=== PATIENT | female | born 1955 | race Caucasian/White ===

== ENCOUNTER → 2018-10-11 | Outpatient (CLI) | payer BC, MEDICARE ==
--- NOTE | 2018-10-11 14:35 | RAD ---
DATE: 10/11/2018 EXAM: MAMMO RHEA GENIA JONES, BREAST BILATERAL HISTORY: Right axillary swelling COMPARISON: 06/25/2015 This study was interpreted with the benefit of Computerized Aided Detection (CAD). Breast Density: HETERO The breast parenchyma is heterogenously dense, which could reduce sensitivity of mammography. Breast parenchyma level C. FINDINGS: 2-D and 3-D tomosynthesis imaging was performed in CC and MLO projections. A spiculated nodule is now identified at the 12:00 location on the right, as best seen on oblique tomosynthesis image #39 and cc tomosynthesis images #40. Its dense central component measures 11 mm. There are additional thin peripheral spiculations. No other new or enlarging breast densities are seen. There are benign type calcifications in both breasts. No suspicious breast microcalcifications are seen. Small lymph node type densities in both axillae appear unchanged. Right breast ultrasound, 10/11/2018: We first targeted the 12:00 location where a nodule was identified mammographically. Approximately 4 cm from the nipple at the 4:00 location there is a hypoechoic nodule with ill-defined margins. It measures 1.1 cm. There is posterior acoustic shadowing. It appears to be taller than wide. The features are highly suspicious for malignancy. No other abnormality was seen in this region. We also targeted the right axillary region where the patient complained of axillary fullness. No mass or adenopathy was identified sonographically. IMPRESSION: Right breast nodule which is highly suspicious for malignancy. Ultrasound-guided biopsy is suggested for further evaluation. Note: The certified ophthalmic technologist informed the patient of these findings at the time of the study. She will follow up with the ordering provider. BI-RADS CATEGORY: 5 HIGHLY SUGGESTIVE MALIGNANCY RECOMMENDED FOLLOW-UP: BIO BIOPSY RECOMMENDED PQRS compliance statement: Patient information was entered into a reminder system with a target due date for the next mammogram. Mammography is a sensitive method for finding small breast cancers, but it does not detect them all and is not a substitute for careful clinical examination. A negative mammogram does not negate a clinically suspicious finding and should not result in delay in biopsying a clinically suspicious abnormality. "Our facility is accredited by the [employer] Mammography Program."
== END | disposition home or self-care (01) ==
LOC: MAMMO 12:58
PROVIDERS: ATTEND Family Medicine
DX: N63.12 Unspecified lump in the right breast, upper inner quadrant (principal); N64.89 Other specified disorders of breast
CPT/HCPCS: 76641; 77066; G0279; 77062

== ENCOUNTER → 2020-03-21 | Outpatient (CLI) | payer BC ==
[~2020-03-21] MED LIST: ALPR0.25 PO; ANAS1TAB47 PO; CHOL500021 PO; DICL100G18 TP; FLUT15.812 NS; LEVO50TA PO; MELO15TA23 PO; OMEG100021 PO; OMEG1CAP50 PO; PANT40TA6 PO; SERT100T PO; SIMV20TA18 PO
== END ==
LOC: LAB 10:00
PROVIDERS: ATTEND Nurse Anesthetist, Certified Registered
DX: Z01.812 Encounter for preprocedural laboratory examination (principal); Z20.828 Contact with and (suspected) exposure to other viral communicable diseases
CPT/HCPCS: U0003

== ENCOUNTER → 2020-03-25 | Day surgery (SDC) | payer BC ==
[~2020-03-25] MED LIST changes: +ACETAMINOPHEN 325 MG TABLET PO PRN; +ALBUTEROL SULFATE 2.5 MG/3 ML NEBU. NEB PRN; +ATROPINE 0.5 MG/5 ML DISP.SYRIN. IV PRN; +IV RINGERS SOLUTION,LACTATED 1,000 ML IV SCH; +MIDAZOLAM HCL PF 2 MG/2 ML VIAL. IV PRN; +ONDANSETRON PF 4 MG/2 ML VIAL. IV PRN; +PROPOFOL 10,000 MCG/ML (20ML) VIAL IV ONE; +diphenhydrAMINE 50 MG/ML VIAL IV PRN
[2020-03-25 11:09] VITALS: BP 112/75
== END | disposition home or self-care (01) ==
LOC: SURG 09:29
PROVIDERS: ATTEND Internal Medicine Gastroenterology
DX: Z12.11 Encounter for screening for malignant neoplasm of colon (principal); Z72.89 Other problems related to lifestyle; Z79.899 Other long term (current) drug therapy; Z90.710 Acquired absence of both cervix and uterus; F32.9 Major depressive disorder, single episode, unspecified; Z90.10 Acquired absence of unspecified breast and nipple; E07.9 Disorder of thyroid, unspecified; E78.5 Hyperlipidemia, unspecified; Z98.891 History of uterine scar from previous surgery
CPT/HCPCS: 45378; J2704; J7120

== ENCOUNTER 2020-07-03 10:03 | Emergency (ER) | payer BC ==
[~2020-07-03] VITALS: Ht 147.3 cm; Wt 59.0 kg
[~2020-07-03 10:03] MED LIST changes: -ACETAMINOPHEN 325 MG TABLET PO PRN; -ALBUTEROL SULFATE 2.5 MG/3 ML NEBU. NEB PRN; -ATROPINE 0.5 MG/5 ML DISP.SYRIN. IV PRN; -IV RINGERS SOLUTION,LACTATED 1,000 ML IV SCH; -MIDAZOLAM HCL PF 2 MG/2 ML VIAL. IV PRN; -ONDANSETRON PF 4 MG/2 ML VIAL. IV PRN; -PROPOFOL 10,000 MCG/ML (20ML) VIAL IV ONE; -diphenhydrAMINE 50 MG/ML VIAL IV PRN
[2020-07-03] MEDS ORDERED: IV NORMAL SALINE 1,000ML 1,000 ML IV ONE (10:45)
[2020-07-03] MEDS ORDERED: ONDANSETRON PF 4 MG/2 ML VIAL. IVP ONE (10:45)
--- NOTE | 2020-07-03 11:27 | PHYS DOC ---
Past History Past Medical History: Anxiety, Cancer, GERD, High Cholesterol, Hypothyroid Past Surgical History: Cancer Surgery Additional Past Surgical Histo: Right breast CA Alcohol Use: Occasionally General Adult EDM: Chief Complaint: NAUSEA/VOMITING/DIARRHEA HPI: HPI: Patient is a 64-year-old female coming in for nausea and vomiting for 5 days. States she has vomited once to twice in the morning, nonbloody nonbilious. Has not had a bowel movement in approximately 7 days. That she has been drinking mell giuliano and taking Tums but has been vomiting with a solid food. Was around sick family members the morning the symptoms started, multiple people with vomiting. Denies any cough, fevers. Has had decreased urination, but denies any dysuria or hematuria. Denies any abdominal distention, recent travel, antibiotic use, raw or undercooked foods. Review of Systems: Review of Systems: All other systems within normal limits except for as noted in the HPI Current Medications: Current Meds: Current Medications Medications (Trade) Dose Ordered Sig/Tegan Start Time Stop Time Status Last Admin Dose Admin Ondansetron HCl (Zofran) 4 mg 1X ONCE 07/03/20 10:45 07/03/20 10:54 DC Sodium Chloride 1,000 ml @ 1,000 mls/hr 1X ONCE 07/03/20 10:45 07/03/20 11:44 Allergies: Allergies: Allergies Coded Allergies Type Severity Reaction Last Updated Verified No Known Drug Allergies 03/19/20 No Physical Exam: PE: Constitutional: Well developed, well nourished, no acute distress, non-toxic appearance. [] HENT: Normocephalic, atraumatic, bilateral external ears normal, nose normal. [] Eyes: PERRLA, conjunctiva normal, no discharge. [] Neck: No rigidity, supple, no stridor. [] Cardiovascular: Regular rate and rhythm, brisk cap refill [] Lungs & Thorax: Non labored symmetric respirations, no tachypnea or respiratory distress [] Abdomen: Soft, nondistended, no focal tenderness, negative Kline sign, no guarding or rebound.. Skin: Warm, dry, no erythema, no rash. [] Back: Unremarkable Extremities: No deformities, range of motion grossly intact, no lower extremity edema [] Neurologic: Alert and oriented X 3, no focal deficits noted. [] Psychologic: Affect normal, judgement normal, mood normal. [] Constitutional: Well developed, well nourished, no acute distress, non-toxic appearance. [] HENT: Normocephalic, atraumatic, bilateral external ears normal, oropharynx moist, no oral exudates, nose normal. [] Eyes: PERRLA, EOMI, conjunctiva normal, no discharge. [] Neck: Normal range of motion, no tenderness, supple, no stridor. [] Cardiovascular:Heart rate regular rhythm, no murmur [] Lungs & Thorax: Bilateral breath sounds clear to auscultation [] Abdomen: Bowel sounds normal, soft, no tenderness, no masses, no pulsatile masses. [] Skin: Warm, dry, no erythema, no rash. [] Back: No tenderness, no CVA tenderness. [] Extremities: No tenderness, no cyanosis, no clubbing, ROM intact, no edema. [] Neurologic: Alert and oriented X 3, normal motor function, normal sensory function, no focal deficits noted. [] Psychologic: Affect normal, judgement normal, mood normal. [] Current Patient Data: Vital Signs: Vital Signs Date Time Temp Pulse Resp B/P (MAP) Pulse Ox O2 Delivery O2 Flow Rate FiO2 07/03/20 10:03 99.0 102 18 113/86 (95) 98 Room Air EKG: EKG: Sinus rhythm, heart rate 90 bpm, normal axis, no ST elevation or depression, no ectopy. [] Radiology/Procedures: Radiology/Procedures: FINDINGS: There is a nonobstructive nonspecific bowel gas pattern, with a moderate amount stool to the level of the rectum. No pathologic calcifications are identified. No free air beneath diaphragm. No significant osseous abnormalities. IMPRESSION: 1. Nonobstructive nonspecific bowel gas pattern.[] Heart Score: HEART Score for Chest Pain: HEART Score for Chest Pain Response (Comments) Value History Slighlty/Non-Suspicious 0 ECG Normal 0 Age >45 - < 65 1 Risk Factors 1 or 2 Risk Factors 1 Troponin >1-<3x Normal Limit 1 Total 3 Risk Factors: Risk Factors: DM, Current or recent (<one month) smoker, HTN, HLP, family history of CAD, obesity. Risk Scores: Score 0 - 3: 2.5% MACE over next 6 weeks - Discharge Home Score 4 - 6: 20.3% MACE over next 6 weeks - Admit for Clinical Observation Score 7 - 10: 72.7% MACE over next 6 weeks - Early Invasive Strategies Course & Med Decision Making: Course & Med Decision Making Pertinent Labs and Imaging studies reviewed. (See chart for details) Initial mildly elevated troponin was a lab error. Repeated twice was negative. Patient went home with Covid precautions and antibiotics for her tract infection. Tolerating p.o. after Zofran. [] Dragon Disclaimer: Dragon Disclaimer: This electronic medical record was generated, in whole or in part, using a voice recognition dictation system. Departure Departure: Impression: Primary Impression: Nausea & vomiting Additional Impression: Urinary tract infection Disposition: 01 DC HOME SELF CARE/HOMELESS Condition: IMPROVED Referrals: HEAVENLY TELLES MD (PCP) Patient Instructions: Nausea and Vomiting Scripts Cephalexin (CEPHALEXIN) 500 Mg Tablet 1 TAB PO BID for antibiotic for 7 Days, #14 TAB Prov: GERALDINE MANRIQUEZ MD 07/03/20 Ondansetron (ONDANSETRON ODT) 4 Mg Tab.rapdis 1 TAB PO PRN Q6-8HRS PRN for NAUSEA for 3 Days, #10 TAB Prov: GERALDINE MANRIQUEZ MD 07/03/20 GERALDINE MANRIQUEZ MD Jul 03, 2020 11:27
[2020-07-03 11:57] LABS: BASO % 0 % (0-3); EOS % 0 % (0-3); HEMATOCRIT 32.8 % (36.0-47.0); HEMOGLOBIN 10.9 g/dL (12.0-15.5); LYMPH # 0.7 x10^3/uL (1.0-4.8); LYMPH % 6 % (24-48); MEAN CORPUSCULAR HEMOGLOBIN 29 pg (25-35); MEAN CORPUSCULAR HGB CONC 33 g/dL (31-37); MEAN CORPUSCULAR VOLUME 88 fL (79-100); MONO # 1.5 x10^3/uL (0.0-1.1); MONO % 12 % (0-9); NEUT # 10.6 x10^3uL (1.8-7.7); NEUT % 82 % (31-73); PLATELET COUNT 194 x10^3/uL (140-400); RED BLOOD COUNT 3.75 x10^6/uL (3.50-5.40); RED CELL DISTRIBUTION WIDTH 14.1 % (11.5-14.5); WHITE BLOOD COUNT 12.8 x10^3/uL (4.0-11.0)
[2020-07-03 12:03] LABS: CALCIUM 9.3 mg/dL (8.5-10.1); CREATININE 0.8 mg/dL (0.6-1.0); GFR 72.7; POTASSIUM 3.6 mmol/L (3.5-5.1)
--- NOTE | 2020-07-03 12:05 | RAD ---
2 views of the abdomen without comparison for vomiting, nausea, and abdominal pain. FINDINGS: There is a nonobstructive nonspecific bowel gas pattern, with a moderate amount stool to th e level of the rectum. No pathologic calcifications are identified. No free air beneath diaphragm. No significant osseous abnormalities. IMPRESSION: 1. Nonobstructive nonspecific bowel gas pattern. Electronically signed by: Florencio Garcia MD (07/03/2020 12:02 PM) [id number]
[2020-07-03 12:09] LABS: ALBUMIN/GLOBULIN RATIO 0.7 (1.0-1.7); TOTAL BILIRUBIN 0.5 mg/dL (0.2-1.0); TOTAL PROTEIN 7.3 g/dL (6.4-8.2)
[2020-07-03] MEDS ORDERED: ONDANSETRON PF 4 MG/2 ML VIAL. IVP PRN (12:45)
[2020-07-03] MEDS ORDERED: IV NORMAL SALINE 1,000ML 1,000 ML IV SCH (12:45)
--- NOTE | 2020-07-03 13:07 | EKG ---
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
[2020-07-03 13:33] LABS: BACTERIA,URINE MANY /HPF (0-FEW); BILIRUBIN,URINE NEG (NEG); CLARITY,URINE TURBID; COLOR,URINE YELLOW; GLUCOSE,URINE NEG (NEG); NITRITE,URINE NEG (NEG); SQUAMOUS EPITHELIAL CELL,UR MOD /LPF; UROBILINOGEN,URINE 0.2 mg/dL (0.2 mg/dL); WBC,URINE >40 /HPF (0-4)
[2020-07-03] MEDS ORDERED: IV NORMAL SALINE 50ML 50 ML ONE (14:26)
[2020-07-03] MEDS ORDERED: cefTRIAXone SODIUM 1 GM VIAL ONE (14:26)
[2020-07-03 14:40] LABS: INFLUENZA A PATIENT NEGATIVE (NEGATIVE); INFLUENZA B PATIENT NEGATIVE (NEGATIVE)
[2020-07-03] MEDS ORDERED: ONDA4TAB12 PO (15:01)
[2020-07-03] MEDS ORDERED: CEPH500T PO (15:01)
[2020-07-03 15:15] VITALS: BP 129/64
--- NOTE | 2020-07-07 11:28 | NUR ---
IP: notified patient of COVID result.
== END 2020-07-03 15:28 | disposition home or self-care (01) ==
LOC: ER 10:03
DX: N39.0 Urinary tract infection, site not specified (principal); R11.2 Nausea with vomiting, unspecified; Z20.822 Contact with and (suspected) exposure to COVID-19; F41.9 Anxiety disorder, unspecified; K21.9 Gastro-esophageal reflux disease without esophagitis; E78.00 Pure hypercholesterolemia, unspecified; E03.9 Hypothyroidism, unspecified; Z98.890 Other specified postprocedural states; Z85.9 Personal history of malignant neoplasm, unspecified
CPT/HCPCS: 36415; 74019; 80053; 81001; 83605; 83690; 84484; 85025; 87086; 87804; 93005; 96361; 96365; 96375; 96376; 99285; C9803; J0696; J2405; J7030; U0003; 87077; 87186

== ENCOUNTER → 2020-08-07 | Outpatient (CLI) | payer BC ==
[~2020-08-07] MED LIST changes: +CEPH500T PO; +ONDA4TAB12 PO
[2020-08-07 12:28] LABS: BASO # 0.1 x10^3/uL (0.0-0.2); BASO % 1 % (0-3); EOS # 0.1 x10^3/uL (0.0-0.7); EOS % 2 % (0-3); HEMATOCRIT 39.2 % (36.0-47.0); HEMOGLOBIN 12.9 g/dL (12.0-15.5); LYMPH # 1.2 x10^3/uL (1.0-4.8); LYMPH % 21 % (24-48); MEAN CORPUSCULAR HEMOGLOBIN 29 pg (25-35); MEAN CORPUSCULAR HGB CONC 33 g/dL (31-37); MEAN CORPUSCULAR VOLUME 89 fL (79-100); MONO # 0.4 x10^3/uL (0.0-1.1); MONO % 8 % (0-9); NEUT # 4.1 x10^3uL (1.8-7.7); NEUT % 69 % (31-73); PLATELET COUNT 228 x10^3/uL (140-400); RED BLOOD COUNT 4.43 x10^6/uL (3.50-5.40)
[2020-08-07 12:33] LABS: ALBUMIN/GLOBULIN RATIO 1.1 (1.0-1.7); CALCIUM 9.3 mg/dL (8.5-10.1); CREATININE 0.8 mg/dL (0.6-1.0); GFR 72.7; POTASSIUM 4.3 mmol/L (3.5-5.1); TOTAL BILIRUBIN 0.5 mg/dL (0.2-1.0); TOTAL PROTEIN 7.6 g/dL (6.4-8.2)
[2020-08-07 13:27] LABS: COLOR,URINE YELLOW
[2020-08-07 13:28] LABS: BACTERIA,URINE 0 /HPF (0-FEW); BILIRUBIN,URINE NEG (NEG); CLARITY,URINE CLEAR; GLUCOSE,URINE NEG (NEG); NITRITE,URINE NEG (NEG); RBC,URINE OCC /HPF (0-2); SQUAMOUS EPITHELIAL CELL,UR FEW /LPF; UROBILINOGEN,URINE 0.2 mg/dL (0.2 mg/dL)
[2020-08-08 18:54] LABS: FREE T4 1.01 ng/dL (0.76-1.46); THYROID STIM HORMONE (TSH) 2.795 uIU/mL (0.358-3.740)
== END ==
LOC: LAB 11:10
PROVIDERS: ATTEND Nurse Practitioner Adult Health
DX: E78.5 Hyperlipidemia, unspecified (principal)
CPT/HCPCS: 36415; 80053; 80061; 81001; 84439; 84443; 85025